=== PATIENT | male | born 1930 | race Caucasian/White ===

== ENCOUNTER 2016-07-20 13:58 | Observation (INO) | payer OTHER, MEDICARE ==
[~2016-07-20] VITALS: Ht 154.9 cm; Wt 95.0 kg
[~2016-07-20 13:58] MED LIST: AMLODIPINE BES2.5 MG PO; ASPIR 8181 M1 PO; ASPIRIN81 M2 PO; CIPRO500 MG PO; Ecotrin PO; FENOFIBRATE48 MG PO; FENOFIBRATE54 M1 PO; GABAPENTIN300 MG PO; GABAPENTIN400 MG PO; GABAPENTIN800 MG PO; GLIPIZIDE10 MG PO; GLUCOTROL5 MG PO; Glucotrol PO; HYTRIN2 MG PO; KEFLEX500 MG PO; LEVOTHYROXINE50 MCG PO; LISINOPRIL-HCT1 EAC3 PO; LOPRESSOR50 MG PO; Levothroid,Synthroid PO; Lopressor PO; METFORMIN HCL500 MG PO; METOPROLOL PO; NITROSTAT0.4 MG SL; Neurontin PO; OMEGA 3-6-91200 MG PO; OMEPRAZOLE20 MG PO; PERCOCET 5/31 TABLET PO; PLAVIX75 MG PO; PRAVACHOL40 MG PO; PRILOSEC20 MG PO; Plavix PO; Pravachol PO; PriLOSEC PO; SYNTHROID50 MCG PO; VICODIN,LORT1 TABLET PO; VITAMIN B122500 MC1 PO; VITAMIN D2000 UNIT PO; Vicodin,Norco 5/325 PO; Zestoretic,Prinzide PO
[2016-07-20 15:03] LABS: MCH 30.5 PG (29.0-34.0); MCHC 34.4 G/DL (30.0-36.0); MCV 88.6 FL (86-99); MEAN PLAT.VOLUME 10.9 uM^3 (9.0-12.4); PLATELET COUNT 168 K/uL (156-360); RBC DIS.WIDTH-CV 13.3 % (11.8-14.6); RBC DIS.WIDTH-SD 43.7 % (39-53); RED BLOOD COUNT 4.63 M/uL (4.00-5.50); WHITE BLOOD COUNT 6.8 K/uL (4.1-10.2)
[2016-07-20 15:11] LABS: CHLORIDE 103 mEq/L (99-109); POTASSIUM 4.2 mEq/L (3.7-5.4); SODIUM 143 mEq/L (136-147)
[2016-07-20 15:13] LABS: GLUCOSE 345 mg/dL (70-99)
[2016-07-20 15:14] LABS: ANION GAP 14 MEQ/L (2-14)
[2016-07-20 15:16] LABS: GFR ESTIMATE (CALCULATED) 51 mL/min/
[2016-07-20 15:17] LABS: UREA NITROGEN (BUN) 29 mg/dL (9-23)
[2016-07-20] MEDS ORDERED: PRILOSEC20 MG PO (15:22)
[2016-07-20] MEDS ORDERED: CYANOCOBALAM1000 MCG PO (15:23)
[2016-07-20 15:24] LABS: TROP-I INTERPRETATION NEGATIVE; TROPONIN-I < 0.01 ng/mL (0.0-0.30)
[2016-07-20] MEDS ORDERED: TUMERIC PO (15:24)
[2016-07-20] MEDS ORDERED: ALEVE220 MG PO (15:25)
[2016-07-20] MEDS ORDERED: BLUE EMU TP (15:25)
[2016-07-20] MEDS ORDERED: ARTIFICIAL TEAR1510 BOTH EYES (15:26)
[2016-07-20 17:39] LABS: POINT-OF-CARE METER ID UU14162513
[2016-07-20 17:53] VITALS: BP 189/86
[2016-07-20 18:31] VITALS: BP 168/79
[2016-07-20 20:07] VITALS: BP 149/69
[2016-07-20 20:32] LABS: TROP-I INTERPRETATION NEGATIVE; TROPONIN-I 0.01 ng/mL (0.0-0.30)
[2016-07-20 21:41] LABS: POINT-OF-CARE METER ID UU14162513
[2016-07-20 23:50] VITALS: BP 137/71
[2016-07-21 00:26] LABS: ADD MIUA? NO; BILIRUBIN NEGATIVE; BLOOD NEGATIVE; COLOR STRAW ((YELLOW)); GLUCOSE (STRIP) 50; KETONES NEGATIVE; LEUKOCYTES NEGATIVE; NITRITE NEGATIVE; PROTEIN (STRIP) NEGATIVE; SPECIFIC GRAVITY 1.008 (1.000-1.030); UCUL ADDED? NO; UROBILINOGEN 0.2 MG/DL (0.2-1.0)
[2016-07-21 02:22] LABS: TROP-I INTERPRETATION NEGATIVE; TROPONIN-I < 0.01 ng/mL (0.0-0.30)
[2016-07-21 04:18] VITALS: BP 162/75
[2016-07-21 08:13] VITALS: BP 174/85
[2016-07-21 08:27] LABS: Estimated Average Glucose 192 mg/dL (70-123); HEMOGLOBIN A1c (GLYCOHEMOGLOB) 8.3 % HGB (Below 5.7)
[2016-07-21 08:30] LABS: ALKALINE PHOSPHATASE 25 IU/L (3-129); ANION GAP 7 MEQ/L (2-14); CHLORIDE 98 MEQ/L (99-109); GFR ESTIMATE (CALCULATED) > 59 mL/min/; SAMPLE HEMOLYSIS CHECK 1; SAMPLE ICTERIC CHECK 0; SAMPLE LIPEMIA CHECK 0; TOTAL BILIRUBIN 0.7 MG/DL (0.0-1.0); UREA NITROGEN (BUN) 21 mg/dL (9-23)
[2016-07-21 08:32] LABS: EOSINOPHIL (%) 0 % (0-5); HEMATOCRIT 34.5 % (38.0-50.0); IMMATURE GRANULOCYTE (%) 0.4 % (0.0-0.7); LYMPHOCYTE COUNT 1.3 K/uL (1.0-2.8); MCHC 35.4 G/DL (30.0-36.0); MCV 87.6 FL (86-99); MONOCYTE (%) 9.5 % (3-12); MONOCYTE COUNT 0.5 K/uL (0-0.8); NEUTROPHIL (%) 62.4 % (45-76); RBC DIS.WIDTH-CV 13.2 % (11.8-14.6); RBC DIS.WIDTH-SD 41.5 % (39-53); RED BLOOD COUNT 3.94 M/uL (4.00-5.50)
[2016-07-21 08:35] LABS: WHITE BLOOD COUNT 4.7 K/uL (4.1-10.2)
[2016-07-21 08:37] LABS: TROP-I INTERPRETATION NEGATIVE; TROPONIN-I 0.01 ng/mL (0.0-0.30)
[2016-07-21 08:42] LABS: GLUCOSE 156 mg/dL (70-99); POTASSIUM 3.2 MEQ/L (3.7-5.4); SODIUM 132 MEQ/L (136-147)
[2016-07-21 08:54] LABS: MEAN PLAT.VOLUME 11.2 uM^3 (9.0-12.4); PLAT.SUFFICIENCY DECREASED
[2016-07-21 09:30] LABS: PLATELET COUNT 112 K/uL (156-360)
[2016-07-21 11:52] VITALS: BP 181/81
[2016-07-21 12:39] LABS: POINT-OF-CARE METER ID UU13113700
[2016-07-21] MEDS ORDERED: AMLODIPINE BESY10 MG PO (12:56)
[2016-07-21 14:27] VITALS: BP 145/68
== END 2016-07-21 15:20 | disposition home or self-care (01) ==
LOC: EME 13:58 → EDOF 16:08 → 5WEST 16:46
PROVIDERS: Hospitalist
DX: R07.89 Other chest pain (principal); N17.9 Acute kidney failure, unspecified; E11.9 Type 2 diabetes mellitus without complications; I25.10 Atherosclerotic heart disease of native coronary artery without angina pectoris; Z95.5 Presence of coronary angioplasty implant and graft; I10 Essential (primary) hypertension; E03.9 Hypothyroidism, unspecified; E78.5 Hyperlipidemia, unspecified; K21.9 Gastro-esophageal reflux disease without esophagitis; Z79.02 Long term (current) use of antithrombotics/antiplatelets; Z87.891 Personal history of nicotine dependence; Z66 Do not resuscitate; Z79.82 Long term (current) use of aspirin; E66.9 Obesity, unspecified
CPT/HCPCS: 71020; 80048; 80053; 81003; 82948; 83036; 84484; 85025; 85027; 93005; 99281; 99285; G0378; J1644; J1815

== ENCOUNTER 2017-03-28 08:14 | Day surgery (SDC) | payer OTHER, MEDICARE ==
[~2017-03-28] VITALS: Ht 180.3 cm; Wt 93.0 kg
[~2017-03-28 08:14] MED LIST changes: +ALEVE220 MG PO; +AMLODIPINE BESY10 MG PO; +ARTIFICIAL TEAR1510 BOTH EYES; +BLUE EMU TP; +CYANOCOBALAM1000 MCG PO; +ISOSORBIDE MONO60 MG PO; +METFORMIN HCL1000 MG PO; +TRADJENTA5 MG PO; +TUMERIC PO
[2017-03-28 09:10] LABS: POINT-OF-CARE METER ID UU13113696
[2017-03-28 15:21] LABS: POINT-OF-CARE METER ID UU13113819
== END 2017-03-28 19:10 | disposition home or self-care (01) ==
LOC: CATH 08:14
PROVIDERS: Internal Medicine Cardiovascular Disease
DX: I25.118 Atherosclerotic heart disease of native coronary artery with other forms of angina pectoris (principal); I25.2 Old myocardial infarction; I11.9 Hypertensive heart disease without heart failure; E11.9 Type 2 diabetes mellitus without complications; E78.2 Mixed hyperlipidemia; K21.9 Gastro-esophageal reflux disease without esophagitis; R01.0 Benign and innocent cardiac murmurs; Z95.5 Presence of coronary angioplasty implant and graft; Z79.82 Long term (current) use of aspirin; Z79.84 Long term (current) use of oral hypoglycemic drugs
CPT/HCPCS: 82948; C1769; C1887; C1894; J1644; J2250; J3010